=== PATIENT | male | born 1995 | race Caucasian/White ===

== ENCOUNTER 2017-01-02 11:39 | Emergency (ER) | payer BC ==
[~2017-01-02] VITALS: Ht 170.2 cm; Wt 70.4 kg
[2017-01-02 11:46] VITALS: TEMP 36.7; Ht 170.2 cm; Wt 70.4 kg
--- NOTE | 2017-01-02 12:19 | EMERGENCY ROOM VISIT NOTE ---
History First contact with patient: 11:52 Chief Complaint: LEG PAIN,LEG INJURY Stated Complaint: LEG PAIN, BRUISING History of Present Illness The patient is a 21 year old male who presents to the Emergency Room with complaints of worsening right calf pain. 5 days ago, the patient was laying a pickup game of football while at home, when he fell and got cleated in the right posterior calf. He states this was with a rubber cleat, and there is no broken skin. The patient states that evening, he went out to the [facility] [place] and began drinking. He awoke the next day, and noticed that his right calf was twice the size of his left. States he ate Thanksgiving dinner, then later that night, told his mother that he felt that he needed to go to the emergency department for evaluation of the significant lower leg swelling. The patient states he went to the hospital, where he was diagnosed with rhabdomyolysis. The patient states he was in the emergency department overnight, where he was given several liters of fluids, and have labs rechecked. The patient states for the past few days, he was having increasing pain. He states last night, the pain worsened. He has been trying to limit his physical activity and walking as much as possible. He was told in the emergency department that he may need orthopedic follow-up, but after repeat CPK, was told he does not need this. The patient is having difficulty extending his big toe, and while he does have full range of motion of the knee and ankle, these do cause pain in the calf. He has been taking 400 mg ibuprofen every 6 hours with only minimal relief of his pain. The patient has been careful to be pushing fluids as much as possible. He denies worsening swelling, but does state the bruising is getting worse. He is able to bear weight, but this does significantly worsen his symptoms. The patient denies any chest pain or dyspnea. He denies any erythema of the leg. Review of Systems A complete 10 point review of systems was reviewed with the patient with pertinent positives and negatives as per history of present illness. All else were negative. Social History Smoking Status: Never Smoker Smokeless Tobacco Use: No Alcohol Use: occasionally Drug Use: none Marital Status: single Housing Status: lives with family Occupation Status: [employer] student Current/Historical Medications No Active Prescriptions or Reported Meds Allergies None Physical Exam Vital Signs Date Time Temp Pulse Resp B/P (MAP) Pulse Ox O2 Delivery O2 Flow Rate FiO2 01/02/17 15:44 54 16 115/62 98 01/02/17 13:45 52 16 105/56 100 Room Air 01/02/17 12:25 53 14 125/77 99 Room Air 01/02/17 11:46 36.7 68 20 121/74 97 Room Air Physical Exam VITALS: Vitals are noted on the nurse's note and reviewed by myself. Vital signs stable. GENERAL: This is a 21-year-old white male, in no acute distress, nondiaphoretic , well-developed well-nourished. SKIN: The skin was without rashes, erythema, edema, or bruising. There is no tenting of the skin. Capillary reflex less than 2 seconds. HEAD: Normocephalic atraumatic. NECK: Supple without nuchal rigidity. No lymphadenopathy. No thyromegaly. Cervical spine is nontender. No JVD. HEART: Regular rate and rhythm without murmurs gallops or rubs. LUNGS: Clear to auscultation bilaterally without wheezes, rales or rhonchi. No dullness to percussion. No retractions or accessory muscle use. ABDOMEN: Positive bowel sounds x 4. Normal tympanic percussion. Soft, nontender, without masses or organomegaly. Payne sign negative. No guarding or rebound tenderness. MUSCULOSKELETAL: Very large hematoma on the posterior, medial aspect of the right calf. There is tenderness on palpation. There is no palpable cord. There is no significant erythema or swelling. The hematoma does extend to the ankle and foot, and up above the knee. It does seem to originate in the proximal calf region. No other obvious muscle atrophy, erythema, or edema noted. Full range of motion without joint tenderness in all extremities. No tenderness to palpation. Normal gait. Strength 5/5 throughout. NEURO: Patient was alert and oriented to person place and time. Normal sensation to light and sharp touch. Deep tendon reflexes 2+ throughout. No focal neurological deficits. Medical Decision & Procedures ER Provider Diagnostic Interpretation: CBC did not show any leukocytosis, anemia, thrombocytopenia. Urinalysis was positive for trace blood and 10-30 white blood cells. PRP did not show any significant electrolyte or renal abnormalities. CPK was slightly elevated at 358. C-reactive protein was slightly elevated at 0.38. ULTRASOUND RIGHT LOWER EXTREMITY VENOUS CLINICAL HISTORY: Right calf swelling. Injury. COMPARISON STUDY: No priors. TECHNIQUE: Real-time, grayscale, and color Doppler sonography of the deep veins of the right lower extremity was performed from the inguinal crease to the calf. Compression and augmentation were utilized. FINDINGS: There is no sonographic evidence of deep venous thrombosis identified in the right lower extremity. The common femoral, superficial femoral, and popliteal veins are patent and normally compressible. The greater saphenous vein and the profunda femoris vein at the junction with the common femoral vein are clear. The visualized calf veins are patent. There is a complex nonvascular hypoechoic collection within the medial right calf measuring 9.9 x 1.3 x 5.2 cm. This appears intramuscular and likely represents a hematoma. IMPRESSION: 1. There is no sonographic evidence of deep venous thrombosis identified in the right lower extremity. 2. There is a complex hypoechoic fluid collection identified within the right calf musculature, typical in appearance for a hematoma. Clinical follow-up to resolution is recommended. Electronically signed by: Arnoldo Lopez M.D. 01/02/2017 2:48 PM Dictated Date/Time: 01/02/2017 2:46 PM Laboratory Results 01/02/17 12:20 Red Blood Count 4.96, Mean Corpuscular Volume 90.3, Mean Corpuscular Hemoglobin 30.0, Mean Corpuscular Hemoglobin Concent 33.3, Mean Platelet Volume 10.1, Neutrophils (%) (Auto) 77.7, Lymphocytes (%) (Auto) 12.0, Monocytes (%) (Auto) 7.8, Eosinophils (%) (Auto) 1.7, Basophils (%) (Auto) 0.4, Neutrophils # (Auto) 7.21, Lymphocytes # (Auto) 1.12, Monocytes # (Auto) 0.73, Eosinophils # (Auto) 0.16, Basophils # (Auto) 0.04 01/02/17 12:20 Test 01/02/17 12:20 White Blood Count 9.30 K/uL (4.8-10.8) Red Blood Count 4.96 M/uL (4.7-6.1) Hemoglobin 14.9 g/dL (14.0-18.0) Hematocrit 44.8 % (42-52) Mean Corpuscular Volume 90.3 fL (80-100) Mean Corpuscular Hemoglobin 30.0 pg (25-34) Mean Corpuscular Hemoglobin Concent 33.3 g/dl (32-36) Platelet Count 232 K/uL (130-400) Mean Platelet Volume 10.1 fL (7.4-10.4) Neutrophils (%) (Auto) 77.7 % Lymphocytes (%) (Auto) 12.0 % Monocytes (%) (Auto) 7.8 % Eosinophils (%) (Auto) 1.7 % Basophils (%) (Auto) 0.4 % Neutrophils # (Auto) 7.21 K/uL (1.4-6.5) Lymphocytes # (Auto) 1.12 K/uL (1.2-3.4) Monocytes # (Auto) 0.73 K/uL (0.11-0.59) Eosinophils # (Auto) 0.16 K/uL (0-0.5) Basophils # (Auto) 0.04 K/uL (0-0.2) RDW Standard Deviation 41.9 fL (36.4-46.3) RDW Coefficient of Variation 12.7 % (11.5-14.5) Immature Granulocyte % (Auto) 0.4 % Immature Granulocyte # (Auto) 0.04 K/uL (0.00-0.02) Erythrocyte Sedimentation Rate 8 mm/hr (0-14) Urine Color YELLOW Urine Appearance CLEAR (CLEAR) Urine pH 6.5 (4.5-7.5) Urine Specific [place] 1.010 (1.000-1.030) Urine Protein NEG (NEG) Urine Glucose (UA) NEG (NEG) Urine Ketones NEG (NEG) Urine Occult Blood TRACE (NEG) Urine Nitrite NEG (NEG) Urine Bilirubin NEG (NEG) Urine Urobilinogen NEG (NEG) Urine Leukocyte Esterase NEG (NEG) Urine WBC (Auto) 10-30 /hpf (0-5) Urine RBC (Auto) 0-4 /hpf (0-4) Urine Hyaline Casts (Auto) 0 /lpf (0-5) Urine Epithelial Cells (Auto) 0-5 /lpf (0-5) Urine Bacteria (Auto) NEG (NEG) Anion Gap 4.0 mmol/L (3-11) Est Creatinine Clear Calc Drug Dose 110.2 ml/min Estimated GFR () 125.0 Estimated GFR (Non- 107.9 BUN/Creatinine Ratio 9.5 (10-20) Calcium Level 9.1 mg/dl (8.5-10.1) Total Creatine Kinase 358 U/L (39-308) C-Reactive Protein 0.38 mg/dl (0-0.29) Medications Administered Medications (Trade) Dose Ordered Sig/Braden Route Start Time Stop Time Status Last Admin Dose Admin Sodium Chloride 1,000 ml @ 999 mls/hr Q1H1M STAT IV 01/02/17 13:22 01/02/17 14:22 DC 01/02/17 13:43 999 MLS/HR Ketorolac Tromethamine (Toradol Inj) 30 mg NOW STAT IV 01/02/17 13:49 01/02/17 13:50 DC 01/02/17 14:02 30 MG Medical Decision The patient was seen and evaluated as above. He was recently seen at his home hospital for rhabdomyolysis after a traumatic injury. The patient presents today complaining of significant right calf pain, which has been progressively worsening since his ED visit 5 days ago. He is very concerned due to the significant pain, and states "I know there is a blood clot". The patient also states "I know the x-ray was negative, but there is definitely something broken ". Labs and imaging did not reveal any significant abnormalities. Ultrasound did show a traumatic hematoma, but was negative for blood clot. Labs were insignificant for rhabdomyolysis. The patient's CPK and CRP were slightly elevated, so I did order 1 L normal saline solution. The patient states he was feeling better after this medication. He was given 30 mg Toradol IV to help with pain. All studies are reviewed with the patient at bedside. He was in agreement with the assessment and plan. The patient ever pus crutches, as he is having difficulty with ambulation at the moment. Discharge instructions were reviewed and the patient was discharged home in good condition. I discussed the case with Dr. Hammer who is in agreement with the assessment and plan. Differential diagnosis includes rhabdomyolysis, hematoma, DVT, compartment syndrome, malignancy, and others Medication Reconcilliation Current Medication List: was personally reviewed by me Blood Pressure Screening Patient's blood pressure: Normal blood pressure Impression Primary Impression: Traumatic hematoma of right lower leg Departure Information Dispostion Home / Self-Care Condition GOOD Prescriptions No Active Prescriptions or Reported Meds Referrals No Doctor, Assigned (PCP) Landon Lynn MD [facility] Patient Instructions ED Compartment Syndrome At Risk For, ED Hematoma, My [facility] Additional Instructions You were seen in the emergency department today for a traumatic hematoma of the right lower extremity. Labs did rule out rhabdomyolysis, and ultrasound did rule out DVT. As discussed, the ultrasound did note the hematoma within the calf, and the radiologist did recommend close follow-up regarding this finding. Please use warm compresses on the leg to help prevent blood clots. You may use the crutches provided to help with weightbearing, but as soon as it is tolerable, you should begin bearing weight and staying active. No physical activity or exercise until cleared by [facility]. If no improvement, you may consider follow-up with orthopedics in one week. Ibuprofen(Motrin, Advil) may be used for fever or pain. Use 600mg every six hours as needed. Take with food. Avoid using more than 2400mg in a 24 hour period. Do not use 2400mg per day for more than three consecutive days without physician direction. Prolonged inappropriate use can lead to stomach upset or ulcers. (AND/OR) Acetaminophen(Tylenol) may be used for fever or pain. Use 1000mg every six hours as needed. Avoid using more than 3000mg in a 24 hour period. Return to the emergency department for worsening redness, swelling, pain, numbness, tingling, fever, drainage, or other concerning findings. Problem Qualifiers Primary Impression: Traumatic hematoma of right lower leg Encounter type: subsequent encounter Qualified Codes: S80.11XD - Contusion of right lower leg, subsequent encounter
[2017-01-02 12:44] LABS: URINE APPEARANCE CLEAR (CLEAR); URINE BILIRUBIN NEG (NEG); URINE COLOR YELLOW; URINE EPITHELIAL CELL AUTO 0-5 /lpf (0-5); URINE NITRITE NEG (NEG); URINE PH 6.5 (4.5-7.5); UROBILINOGEN NEG (NEG); ZZUR CULT IF INDIC CLEAN CATCH YES
[2017-01-02 12:47] LABS: MANUAL MICROSCOPIC REQUIRED? NO; REVIEW REQ? NO
[2017-01-02 12:48] LABS: BASO % 0.4 %; BASO ABS # 0.04 K/uL (0-0.2); COMPLETE YES; EOS % 1.7 %; HEMATOCRIT 44.8 % (42-52); IG% 0.4 %; LYMPH ABS # 1.12 K/uL (1.2-3.4); MEAN CELL VOLUME 90.3 fL (80-100); MEAN CORPUSCULAR HGB CONC 33.3 g/dl (32-36); MEAN PLATELET VOLUME 10.1 fL (7.4-10.4); MONO % 7.8 %; NEUT % 77.7 %; PLATELET COUNT 232 K/uL (130-400); RED BLOOD COUNT 4.96 M/uL (4.7-6.1)
[2017-01-02 13:10] LABS: BUN/CREATININE RATIO 9.5 (10-20); CALCIUM 9.1 mg/dl (8.5-10.1)
[2017-01-02 13:14] LABS: C-REACTIVE PROTEIN 0.38 mg/dl (0-0.29)
[2017-01-02] MEDS ORDERED: SODIUM CHLORIDE 0.9% 1000ML 1,000 ML IV STA (13:22)
[2017-01-02] MEDS ORDERED: KETOROLAC TROMETHAMINE 30 MG/ML VIAL IV STA (13:49)
--- NOTE | 2017-01-02 14:49 | DIAGNOSTIC IMAGING REPORT ---
ULTRASOUND RIGHT LOWER EXTREMITY VENOUS CLINICAL HISTORY: Right calf swelling. Injury. COMPARISON STUDY: No priors. TECHNIQUE: Real-time, grayscale, and color Doppler sonography of the deep veins of the right lower extremity was performed from the inguinal crease to the calf. Compression and augmentation were utilized. FINDINGS: There is no sonographic evidence of deep venous thrombosis identified in the right lower extremity. The common femoral, superficial femoral, and popliteal veins are patent and normally compressible. The greater saphenous vein and the profunda femoris vein at the junction with the common femoral vein are clear. The visualized calf veins are patent. There is a complex nonvascular hypoechoic collection within the medial right calf measuring 9.9 x 1.3 x 5.2 cm. This appears intramuscular and likely represents a hematoma. IMPRESSION: 1. There is no sonographic evidence of deep venous thrombosis identified in the right lower extremity. 2. There is a complex hypoechoic fluid collection identified within the right calf musculature, typical in appearance for a hematoma. Clinical follow-up to resolution is recommended. Electronically signed by: Arnoldo Lopez M.D. 01/02/2017 2:48 PM Dictated Date/Time: 01/02/2017 2:46 PM
[2017-01-02 15:44] VITALS: BP 115/62; PULSE 54; O2SAT 98
== END 2017-01-02 15:40 | disposition home or self-care (01) ==
LOC: C.EDB 11:41
DX: S80.11XA Contusion of right lower leg, initial encounter (principal); W22.8XXA Striking against or struck by other objects, initial encounter; Y92.018 Other place in single-family (private) house as the place of occurrence of the external cause

== ENCOUNTER → 2017-01-11 | Outpatient (CLI) | payer BC ==
--- NOTE | 2017-01-11 18:12 | DIAGNOSTIC IMAGING REPORT ---
ULTRASOUND RIGHT LOWER EXTREMITY VENOUS CLINICAL HISTORY: Right lower extremity hematoma. COMPARISON STUDY: Right lower extremity venous ultrasound dated 01/02/2017. TECHNIQUE: Real-time, grayscale, and color Doppler sonography of the deep veins of the right lower extremity was performed from the inguinal crease to the calf. Compression and augmentation were utilized. FINDINGS: There is no sonographic evidence of deep venous thrombosis identified in the right lower extremity. The common femoral, superficial femoral, and popliteal veins are patent and normally compressible. The greater saphenous vein and the profunda femoris vein at the junction with the common femoral vein are clear. The visualized calf veins are patent. Again seen is a complex hypoechoic collection within the medial right calf musculature. This measures 11.4 x 1.9 x 4.6 cm. IMPRESSION: 1. There is no sonographic evidence of deep venous thrombosis identified in the right lower extremity. 2. No significant change in the appearance of a complex collection in the medial right calf musculature as compared to study performed several days ago. This remains most typical in appearance for a hematoma. Clinical follow-up to resolution is recommended. Electronically signed by: Arnoldo Lopez M.D. 01/11/2017 6:11 PM Dictated Date/Time: 01/11/2017 6:09 PM
== END | disposition home or self-care (01) ==
LOC: C.ULTR 17:30
PROVIDERS: ATTEND Family Medicine
DX: S80.11XD Contusion of right lower leg, subsequent encounter (principal); X58.XXXA Exposure to other specified factors, initial encounter

== ENCOUNTER → 2017-03-27 | Day surgery (SDC) | payer BC ==
[2017-03-17 09:09] VITALS: BMI 25.0
[~2017-03-27] VITALS: Ht 170.2 cm; Wt 72.7 kg
[~2017-03-27] MED LIST: FENTANYL CITRATE INJ 50 MCG/1 ML 2 ML VIAL ONE; LIDOCAINE HCL 2% 2 ML VIAL (20MG/ML) ONE; PROPOFOL IV EMULSION 10 MG/ML 20 ML VIAL IV ONE; SODIUM CHLORIDE 0.9% 500ML 500 ML IV ONE
[2017-03-27 07:56] VITALS: Ht 170.2 cm; Wt 72.7 kg
--- NOTE | 2017-03-27 08:17 | Endo History and Physical ---
History & Physical Date of Service: Mar 27, 2017. Chief Complaint: REFLUX Referring Physician: Melvina Barton History of Present Illness 21 yo CM who presents for EGD secondary to GERD. Past Surgical History Hx Cardiac Surgery: No Hx Internal Defibrillator: No Hx Pacemaker: No Hx Abdominal Surgery: No Hx of Implantable Prosthesis: No Hx Post-Op Nausea and Vomiting: No Hx Cancer Surgery: No Hx Thoracic Surgery: No Hx Orthopedic: Yes (RT ACL REPAIR X2) Hx Urinary Tract Surgery: No Family History Esophogeal CA Social History Smoking Status: Never Smoker Hx Substance Use: No Hx Alcohol Use: Yes (OCCASIONAL) Allergies Coded Allergies: No Known Allergies (Unverified , 03/27/17) Current Medications Reported Home Medications Medications Dose Route/Sig Max Daily Dose Days Date Category No Active Prescriptions or Reported Medications Rx Vital Signs Weight (Kilograms): 72.73 Height (Feet): 5 Height (Inches): 7 Date Time Temp Pulse Resp B/P (MAP) Pulse Ox O2 Delivery O2 Flow Rate FiO2 03/27/17 08:00 36.7 49 16 116/59 (78) 97 Room Air Physical Exam General Appearance: WD/WN, no apparent distress Respiratory/Chest: Auscultation: breath sounds normal Cardiovascular: Heart Auscultation: RRR Abdomen: Bowel Sounds: normal Inspection & Palpation: soft, non-distended, no tenderness, guarding & rebound Assessment and Plan Assessment: 21 yo CM who presents for EGD secondary to GERD. Plan: Proceed with EGD.
--- NOTE | 2017-03-27 09:12 | Discharge Instructions ---
Endoscopy Patient Instructions Date / Procedure(s) Performed Mar 27, 2017. EGD Allergy Information Coded Allergies: No Known Allergies (Unverified , 03/27/17) Discharge Date / Findings Mar 27, 2017. Reflux esophagitis Medication Instructions 1) Start Omeprazole 20mg by mouth each morning 1/2 hour prior to breakfast. 2) OK to resume all other medications today as prescribed Reported Home Medications Medications Dose Route/Sig Max Daily Dose Days Date Category No Active Prescriptions or Reported Medications Rx Provider Instructions Activity Restrictions - No exercising or heavy lifting for 24 hours. - Do not drink alcohol the day of the procedure. - Do not drive a car or operate machinery until the day after the procedure. - Do not make any important decisions or sign important papers in 24 hours after the procedure. Following Day: - Return to full activity which may include returning to work/school. Diet Start your diet with liquids and light foods (jello, soup, juice, toast). Then eat your usual diet if not nauseated. Treatment For Common After Affects For mild abdominal pain, bloating, or excessive gas: - Rest - Eat lightly - Lie on right side Follow-Up Information Follow-up with NONE as scheduled Anesthesia Information What You Should Know You have had a procedure that required some medicine to reduce anxiety and discomfort. This treatment is called moderate sedation. After receiving the treatment, you may be sleepy, but you will be able to breathe on your own. The effects of the treatment may last for several hours. Follow these instructions along with Activity/Diet recommendations noted above: * Do NOT do anything where dizziness or clumsiness would be dangerous. * Rest quietly at home today, then you can be up and about tomorrow. * Have a responsible person stay with you the rest of today. * You may have had an I.V. today. If so, you may take the dressing off later today. Recommendations Call your doctor if: * Trouble breathing * Continuous vomiting for more than 24 hours * Temperature above 101 degrees * Severe abdominal pain or bloating * Pain not relieved by pain medicine ordered * There is increased drainage or redness from any incision * A large amount of rectal bleeding greater than 2-3 tablespoons. (If you had a polyp/s removed or have hemorrhoids, a small amount of blood - from the rectum is to be expected.) * You have any unanswered questions or concerns. IN THE EVENT OF A SERIOUS EMERGENCY, GO TO THE NEAREST EMERGENCY ROOM Your discharge instructions were prepared by provider Linus Perez. Patient Instructions Signature Page Eric Acuna Patient (or Guardian) Signature/Date: I have read and understand the instructions given to me by my caregivers. Caregiver/RN/Doctor Signature/Date: The above-named patient and/or guardian has received patient instructions on this date. + Original Patient Signature Page (only) stays with chart. Please make copy for patient.
--- NOTE | 2017-03-27 09:16 | GI REPORT ---
Procedure Date: 03/27/2017 8:49 AM Procedure: Upper GI endoscopy Indications: Suspected reflux esophagitis Medicines: Monitored Anesthesia Care Complications: No immediate complications. Estimated Blood Loss: Estimated blood loss: none. Procedure: Pre-Anesthesia Assessment: - Prior to the procedure, a History and Physical was performed, and patient medications and allergies were reviewed. The patient's tolerance of previous anesthesia was also reviewed. The risks and benefits of the procedure and the sedation options and risks were discussed with the patient. All questions were answered, and informed consent was obtained. Prior Anticoagulants: The patient has taken no previous anticoagulant or antiplatelet agents. ASA Grade Assessment: I - A normal, healthy patient. After reviewing the risks and benefits, the patient was deemed in satisfactory condition to undergo the procedure. After obtaining informed consent, the endoscope was passed under direct vision. Throughout the procedure, the patient's blood pressure, pulse, and oxygen saturations were monitored continuously. The scope was introduced through the mouth, and advanced to the second part of duodenum. The upper GI endoscopy was accomplished without difficulty. The patient tolerated the procedure well. Findings: LA Grade B (one or more mucosal breaks greater than 5 mm, not extending between the tops of two mucosal folds) esophagitis with no bleeding was found. Biopsies were taken with a cold forceps for histology. The stomach was normal. The examined duodenum was normal. Impression: - LA Grade B reflux esophagitis. Biopsied. - Normal stomach. - Normal examined duodenum. Recommendation: - Resume previous diet. - Use Prilosec (omeprazole) 20 mg PO daily. - Await pathology results. - Return to primary care physician as previously scheduled. Linus Perez, DO 03/27/2017 9:16:20 AM This report has been signed electronically. Note Initiated On: 03/27/2017 8:49 AM I attest to the content of the Intraoperative Record and orders documented therein, exceptions below
--- NOTE | 2017-03-27 09:24 | Anesthesiology Progress Note ---
Anesthesia Post Op Note Date & Time Mar 27, 2017 at 09:24 Vital Signs Pain Intensity: 0 Vital Signs Past 12 Hours Date Time Temp Pulse Resp B/P (MAP) Pulse Ox O2 Delivery O2 Flow Rate FiO2 03/27/17 09:12 58 12 112/61 (78) 100 Room Air 03/27/17 08:00 36.7 49 16 116/59 (78) 97 Room Air Notes Mental Status: alert / awake / arousable, participated in evaluation Pt Amnestic to Procedure: Yes Nausea / Vomiting: adequately controlled Pain: adequately controlled Airway Patency, RR, SpO2: stable & adequate BP & HR: stable & adequate Hydration State: stable & adequate Anesthetic Complications: no major complications apparent
[2017-03-27 09:40] VITALS: BP 112/64; PULSE 48; O2SAT 98
== END | disposition home or self-care (01) ==
LOC: C.GI 07:41
PROVIDERS: ATTEND Internal Medicine
DX: K21.0 Gastro-esophageal reflux disease with esophagitis (principal); Z80.0 Family history of malignant neoplasm of digestive organs